=== PATIENT | male | born 1960 | race African-American/Black ===

== ENCOUNTER 2025-01-16 13:42 | Emergency (ER) | payer MEDICAID ==
[~2025-01-16] VITALS: Ht 167.6 cm; Wt 59.0 kg
[2025-01-16 13:48] VITALS: PULSE 65; RESP 18; O2SAT 98
[2025-01-16 13:49] VITALS: BP 131/79; TEMP 36.8; O2SAT 98
== END 2025-01-16 18:55 | disposition left against medical advice (07) ==
LOC: ER 13:42
DX: I10 Essential (primary) hypertension (principal)
CPT/HCPCS: 99281